=== PATIENT | female | born 1965 | race Caucasian/White ===

== ENCOUNTER 2023-01-16 07:35 | Emergency (ER) | payer SELFPAY ==
[2023-01-16] MEDS ORDERED: LIDOCAINE 1% 20 ML MDV ONE (08:11)
--- NOTE | 2023-01-16 08:44 | RAD REPORT ---
EXAM DESCRIPTION: CT - Head C Spine Mpr Wo Con - 01/16/2023 8:26 am CLINICAL HISTORY: Head and neck injury status post fall. Head and neck pain. Syncope COMPARISON: None. TECHNIQUE: Computed axial tomography of the head and cervical spine was obtained. Sagittal and coronal reconstruction was performed. All CT scans are performed using dose optimization technique as appropriate and may include automated exposure control or mA/KV adjustment according to patient size. FINDINGS: An intracranial bleed is not seen. The ventricles are normal in caliber. No significant hypodensity within the brain. An extra-axial fluid collection is not noted. Fluid within the visualized sinuses and mastoids is not seen A cervical fracture is not visualized. No dislocation is noted. IMPRESSION: No acute intracranial abnormality is seen. A cervical fracture is not visualized. If the patient continues to have symptoms to suggest intracranial /spinal cord pathology then MRI wou ld be recommended
--- NOTE | 2023-01-16 08:48 | RAD REPORT ---
EXAM DESCRIPTION: CT - Facial Bones W/ Mpr - 01/16/2023 8:26 am CLINICAL HISTORY: Facial injury with pain COMPARISON: None TECHNIQUE: Computed axial tomography of the face was obtained. Coronal and sagittal reconstruction w as performed. All CT scans are performed using dose optimization technique as appropriate and may include automated exposure control or mA/KV adjustment according to patient size. FINDINGS: Comminuted depressed nasal bone fracture. There also appears to be a mildly displaced frac ture involving nasal septum. A TMJ dislocation is not noted. The globes are intact. Fluid within the sinuses is not seen. IMPRESSION: Comminuted depressed nasal bone fracture Mildly displaced fracture of the nasal septum
--- NOTE | 2023-01-16 09:10 | RAD REPORT ---
EXAM DESCRIPTION: Arabella Single View01/16/2023 8:35 am CLINICAL HISTORY: Syncope COMPARISON: none FINDINGS: The lungs appear clear of acute infiltrate. The heart is normal size IMPRESSION: No acute abnormalities displayed
[2023-01-16 09:17] LABS: Absolute Lymphocytes (CBC) 1.5 K/uL (0.7-4.9); Hematocrit 40.2 % (36.0-45.0); Lymphocytes % 14.9 % (15.3-44.8); MCV 88.9 fL (80-100); MPV 9.5 fL (7.6-11.3); RBC Red Blood Cell Count 4.52 M/uL (3.86-4.86)
[2023-01-16] MEDS ORDERED: TETANUS & DIPHTHERIA TOX,ADULT 0.5 ML VIAL ONE (09:23)
[2023-01-16 09:36] LABS: Potassium 4.5 mEq/L (3.5-5.1); Troponin High Sensitivity 5.1 pg/mL (<58.9)
[2023-01-16] MEDS ORDERED: LIDOCAINE 1% W/EPI 1:100,000 50 ML MDV ONE (09:47)
--- NOTE | 2023-01-16 10:26 | ER ---
Nurse's Notes [facility] Name: Shanthi Raymond Age: 57 yrs Sex: Female : 1965 Arrival Date: 01/16/2023 Time: 07:35 Bed 18 Private MD: Diagnosis: Laceration of the lip;Nasal fracture;Syncope Presentation: 01/16 07:55 Chief complaint: Patient states: Stood up from bed an woke up on the floor, upper lip jl7 laceration, abrasion to bridge of nose. Coronavirus screen: At this time, the client does not indicate any symptoms associated with coronavirus-19. Ebola Screen: No symptoms or risks identified at this time. Initial Sepsis Screen: Does the patient meet any 2 criteria? No. Patient's initial sepsis screen is negative. Does the patient have a suspected source of infection? No. Patient's initial sepsis screen is negative. Risk Assessment: Do you want to hurt yourself or someone else? Patient reports no desire to harm self or others. 07:55 Method Of Arrival: Ambulatory [facility] 07:55 Acuity: RAMBO 3 [facility] 07:55 Onset of symptoms was January 16, 2023. [facility] Triage Assessment: 10:49 General: Appears in no apparent distress. comfortable, Behavior is calm. Neuro: Level db of Consciousness is awake, alert, obeys commands, Oriented to person, place, time, situation, Reports a syncopal episode. Historical: - Allergies: 08:25 No Known Allergies; [facility] - Home Meds: 08:25 hydrochlorothiazide 25 mg Oral tablet [Active]; [facility] - PMHx: 08:25 Hypertensive disorder; mitral valve prolapse; [facility] - PSHx: 08:25 Total abdominal hysterectomy; Tonsillectomy; 7 - Immunization history:: Adult Immunizations unknown. - Social history:: Smoking status: Patient denies any tobacco usage or history of. Screenin:49 [facility] ED Fall Risk Assessment (Adult) History of falling in the last 3 months, db including since admission Yes- single mechanical fall (1 pt) Confusion or Disorientation No (0 pts) Intoxicated or Sedated Impaired Gait No (0 pts) Mobility Assist Device Used No (0 pt) Altered Elimination No (0 pt) Score/Fall Risk Level 0 - 2 = Low Risk Oriented to surroundings, Maintained a safe environment. Abuse screen: Denies threats or abuse. Denies injuries from another. Nutritional screening: No deficits noted. Tuberculosis screening: No symptoms or risk factors identified. Assessment: 09:45 Reassessment: Ga BARTH at patient bedside for laceration repair. db 09:45 Reassessment: Patient appears in no apparent distress at this time. Patient and/or db family updated on plan of care and expected duration. Pain level reassessed. Patient is alert, oriented x 3, equal unlabored respirations, skin warm/dry/pink. Pain: Complains of pain in face. Neuro: Level of Consciousness is awake, alert, obeys commands, Oriented to person, place, time, situation. 10:49 Reassessment: Patient appears in no apparent distress at this time. Patient and/or db family updated on plan of care and expected duration. Pain level reassessed. Patient is alert, oriented x 3, equal unlabored respirations, skin warm/dry/pink. Cardiovascular: Rhythm is regular. Vital Signs: 07:55 BP 152 / 73; Pulse 83; Resp 17; Temp 97.9; Pulse Ox 98% ; Weight 108.86 kg; Height 5 jl7 ft. 6 in. ; Pain 6/10; 09:45 BP 136 / 69; Pulse 80; Resp 16; Pulse Ox 99% on R/A; db 07:55 Body Mass Index 38.74 (108.86 kg, 167.64 cm) jl7 07:55 Pain Scale: Adult jl7 ED Course: 07:36 Patient arrived in ED. am2 07:39 Rafa Smith MD is Attending Physician. rn 08:02 Ga Newman [facility] 08:08 Patient has correct armband on for positive identification. Placed in gown. Bed in low mm9 position. Call light in reach. Side rails up X 1. Adult w/ patient. Warm blanket given. Client placed on continuous cardiac and pulse oximetry monitoring. NIBP monitoring applied. manager monitoring on. Pulse ox on. NIBP on. 08:09 EKG done, by ED staff, reviewed by Ga BARTH. mm9 08:14 Triage completed. jl7 08:19 Missed attempt(s): 20 gauge in left forearm. mm9 08:28 CT Head C Spine In Process Unspecified. EDMS 08:28 CT Facial Bones W/O Con In Process Unspecified. EDMS 08:37 XRAY Chest (1 view) In Process Unspecified. EDMS 09:08 Missed attempt(s): 22 gauge in left forearm. Bleeding controlled, band aid applied, jl7 catheter tip intact. 09:08 Initial lab(s) drawn, by me, sent to lab. Inserted saline lock: 22 gauge in left jl7 antecubital area, using aseptic technique. Blood collected. 09:24 Shannon Roman, VENICE is Primary Nurse. db 10:24 José Johnson MD is Referral Physician. jmm 10:24 Referral Physician role handed off by José Johnson MD jmm 10:24 José Johnson MD is Referral Physician. m 10:26 Willow Hammonds MD is Referral Physician. m 10:49 Patient placed in an exam room. db 10:49 No provider procedures requiring assistance completed. IV discontinued, intact, db bleeding controlled, No redness/swelling at site. 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 Exp: db 02/01/2024. Lot #: [id number]. } Route: IM; Site: right deltoid; 10:48 Follow up: Response: No adverse reaction db 09:41 Not Given (lido with epi given insteadd): Lidocaine Infiltration (1 %) 20 ml 20 ml db Infiltration once; to bedside 09:41 Drug: Lidocaine-Epinephrine Infiltration -1%: (1:100,000) 20 ml {Note: given to db provider.} Volume: 20 ml; Route: Infiltration; 10:48 Follow up: Response: No adverse reaction db Medication: 10:49 VIS not applicable for this client. db Outcome: 10:25 Discharge ordered by . m 10:48 Discharged to home ambulatory, with family. db 10:48 Condition: stable 10:48 Discharge instructions given to patient, Instructed on discharge instructions, follow up and referral plans. Demonstrated understanding of instructions, follow-up care. 10:50 Patient left the ED. db Signatures: Dispatcher [employer] EDMS Ga Newman PA PA jmm Nieto, Roman, MD MD rn Jerardo Callaway RN RN jl7 Vangie Hays am2 Asuncion Hurtado RN RN kb3 Shannon Roman RN RN Radha Suero mm9
--- NOTE | 2023-01-16 10:26 | EDPHYS ---
Physician Documentation [facility] Name: Shanthi Raymond Age: 57 yrs Sex: Female : 1965 Arrival Date: 01/16/2023 Time: 07:35 Bed 18 Private MD: ED Physician Rafa Smith HPI: 01/16 08:28 This 57 yrs old Female presents to ER via Ambulatory with complaints of Syncope, Fall jmm Injury, Laceration To Lip, Laceration To Nose. 08:28 The patient has experienced syncope. Onset: The symptoms/episode began/occurred jmm acutely, just prior to arrival. Duration: This was a single episode. Associated injury: Head/face: laceration. This is a 57 year old female that presents to the ED with complaints of laceration to her upper lip after a syncopal episode which occurred this morning. Patient denies sob, chest pain, weakness. . Historical: - Allergies: 08:25 No Known Allergies; jl7 - Home Meds: 08:25 hydrochlorothiazide 25 mg Oral tablet [Active]; jl7 - PMHx: 08:25 Hypertensive disorder; mitral valve prolapse; jl7 - PSHx: 08:25 Total abdominal hysterectomy; Tonsillectomy; jl7 - Immunization history:: Adult Immunizations unknown. - Social history:: Smoking status: Patient denies any tobacco usage or history of. ROS: 08:28 Constitutional: Negative for fever, chills, and weight loss, Cardiovascular: Negative jmm for chest pain, palpitations, and edema, Respiratory: Negative for shortness of breath, cough, wheezing, and pleuritic chest pain. 08:28 Skin: Positive for laceration(s). 08:28 Neuro: Positive for syncope. 08:28 All other systems are negative. Exam: 08:28 Constitutional: This is a well developed, well nourished patient who is awake, alert, jmm and in no acute distress. 08:28 Eyes: EOMI, no conjunctival erythema appreciated ENT: Moist Mucus Membranes Neck: Trachea midline, Supple Chest/axilla: Normal chest wall appearance and motion. Cardiovascular: Regular rate and rhythm. No edema appreciated Respiratory: Normal respirations, no respiratory distress appreciated Abdomen/GI: Non distended Back: Normal ROM Skin: General appearance color normal MS/ Extremity: Moves all extremities, no obvious deformities appreciated, no edema noted to the lower extremities Neuro: Awake and alert Psych: Behavior is normal, Mood is normal, Patient is cooperative and pleasant 08:28 Head/face: Noted is a laceration(s). Vital Signs: 07:55 BP 152 / 73; Pulse 83; Resp 17; Temp 97.9; Pulse Ox 98% ; Weight 108.86 kg; Height 5 jl7 ft. 6 in. ; Pain 6/10; 09:45 BP 136 / 69; Pulse 80; Resp 16; Pulse Ox 99% on R/A; db 07:55 Body Mass Index 38.74 (108.86 kg, 167.64 cm) [facility] 07:55 Pain Scale: Adult jl7 Laceration: 10:21 Wound Repair of 2cm ( 0.8in ) subcutaneous laceration to upper don border. jmm Distal neuro/vascular/tendon intact. Anesthesia: Local anesthetic administered with 2 mls of 1% lidocaine w/ Epi, Regional Block with 5 mls of 0.5% marcaine. Wound prep: Simple cleansing with betadine by me. Skin closed with 7 5-0 chromic gut using simple sutures and sterile technique. Patient tolerated well. MDM: 07:40 Patient medically screened. rn 10:21 Differential Diagnosis: Laceration, vasovagal, syncope, anemia, nasal contusion, nasal jmm fracture. Data reviewed: vital signs, nurses notes, radiologic studies, CT scan. Consideration of Admission/Observation Escalation of care including admission/observation considered. I considered the following discharge prescriptions or medication management in the emergency department Medications were administered in the Emergency Department. See MAR. Counseling: I had a detailed discussion with the patient and/or guardian regarding: the historical points, exam findings, and any diagnostic results supporting the discharge/admit diagnosis, lab results, radiology results, the need for outpatient follow up, to return to the emergency department if symptoms worsen or persist or if there are any questions or concerns that arise at home. 01/16 08:03 Order name: Basic Metabolic Panel; Complete Time: 09:39 [facility] 01/16 08:03 Order name: CBC with Diff; Complete Time: 09:18 [facility] 01/16 08:03 Order name: Troponin HS; Complete Time: 09:39 [facility] 01/16 08:03 Order name: XRAY Chest (1 view); Complete Time: 09:18 [facility] 01/16 08:03 Order name: CT Head C Spine; Complete Time: 08:55 [facility] 01/16 08:03 Order name: CT Facial Bones W/O Con; Complete Time: 08:55 [facility] 01/16 08:03 Order name: EKG; Complete Time: 08:03 [facility] 01/16 08:03 Order name: Cardiac monitoring; Complete Time: 08:10 [facility] 01/16 08:03 Order name: EKG - Nurse/Tech; Complete Time: 08:10 [facility] 01/16 08:03 Order name: IV Saline Lock; Complete Time: 09:11 [facility] 01/16 08:03 Order name: Labs collected and sent; Complete Time: 09:11 [facility] 01/16 08:03 Order name: O2 Per Protocol; Complete Time: 09:11 [facility] 01/16 08:03 Order name: O2 Sat Monitoring; Complete Time: 09:11 [facility] Administered Medications: 09:11 Drug: Bupivacaine Infiltration (0.5 %) 20 ml {Note: At bedside, administered by Ga feliciano during lac repair.} Volume: 10 ml; Route: Infiltration; 10:48 Follow up: Response: No adverse reaction db 09:30 Drug: Tetanus-Diphtheria Toxoid IM Adult 0.5 ml {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 Exp: [employer] 02/01/2024. Lot #: [id number]. } Route: IM; Site: right deltoid; 10:48 Follow up: Response: No adverse reaction db 09:41 Not Given (lido with epi given insteadd): Lidocaine Infiltration (1 %) 20 ml 20 ml db Infiltration once; to bedside 09:41 Drug: Lidocaine-Epinephrine Infiltration -1%: (1:100,000) 20 ml {Note: given to db provider.} Volume: 20 ml; Route: Infiltration; 10:48 Follow up: Response: No adverse reaction db Disposition: 13:46 Co-signature as Attending Physician, Rafa Smith MD I reviewed the patient's care rn provided by the Advanced Practice Provider and agree with the diagnosis and treatment plan. Disposition Summary: 01/16/23 10:25 Discharge Ordered Location: Home [facility] Condition: Stable [facility] Diagnosis - Laceration of the lip jmm - Nasal fracture jmm - Syncope jm Followup: [facility] - With: Private Physician - When: 5 - 6 days - Reason: Recheck today's complaints, Continuance of care, Re-evaluation by your physician Followup: [facility] - With: José Johnson MD - When: 2 - 3 days - Reason: Recheck today's complaints, Continuance of care, Re-evaluation by your physician Followup: [facility] - With: José Johnson MD - When: 1 week - Reason: Recheck today's complaints, Continuance of care, Re-evaluation by your physician Followup: [facility] - With: Willow Hammonds MD - When: 2 - 3 days - Reason: Recheck today's complaints, Continuance of care, Re-evaluation by your physician Discharge Instructions: - Discharge Summary Sheet [facility] - Facial Laceration [facility] - Nasal Fracture [facility] - Syncope [facility] Forms: - Medication Reconciliation Form [facility] - Thank You Letter [facility] - Antibiotic Education [facility] - Prescription Opioid Use [facility] Prescriptions: - Clindamycin HCl 300 mg Oral Capsule - take 1 capsule by ORAL route every 6 hours for 10 days; 40 capsule; Refills: 0, [facility] Product Selection Permitted Signatures: Dispatcher [employer] EDGa Jacob PA PA m Rafa Smith MD MD rn Jerardo Callaway RN RN jl7 Asuncion Hurtado, RN RN kb3 Shannon Roman, RN RN db
[2023-01-16 10:55] VITALS: TEMP 97.9
[2023-01-16 10:57] VITALS: BP 136/69; O2SAT 99
== END 2023-01-16 10:50 | disposition home or self-care (01) ==
LOC: ER 07:35
PROC: 0HQ1XZZ Repair Face Skin, External Approach (ICD-10-PCS; principal; 2023-01-16)
DX: S01.511A Laceration without foreign body of lip, initial encounter (principal); S02.2XXA Fracture of nasal bones, initial encounter for closed fracture; R55 Syncope and collapse; I10 Essential (primary) hypertension; Z23 Encounter for immunization
CPT/HCPCS: 36415; 70450; 70486; 71045; 72125; 76377; 80048; 84484; 85025; 90471; 90714; 93005; 99285; J2001